=== PATIENT | male | born 1995 | race Caucasian/White ===

== ENCOUNTER 2018-11-27 15:02 | Emergency (ER) | payer OTHER, BC ==
[2018-11-27] MEDS ORDERED: Propofol 200 MG/20 ML SDV ONE ×2 (15:08→16:16)
[2018-11-27] MEDS ORDERED: fentaNYL 100 MCG/2 ML SDV ONE ×2 (15:08→16:15)
[2018-11-27] MEDS ORDERED: Rocuronium 50 MG/5 ML Vial ONE ×2 (15:08→16:16)
[2018-11-27] MEDS ORDERED: Succinylcholine 200 MG/10 ML MDV ONE ×2 (15:08→16:16)
[2018-11-27] MEDS ORDERED: Midazolam 1 MG/ML 2 ML SDV ONE ×3 (15:08→16:16)
[2018-11-27 15:20] LABS: ANION GAP 16.3 mmol/L (10-20); CHLORIDE,CL 104 mmol/L (98-109); SODIUM,NA 141 mmol/L (138-146)
[2018-11-27] MEDS ORDERED: Sodium Chloride 0.9% 1,000 ML IV ONE ×2 (15:20→15:30)
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
[2018-11-27] MEDS ORDERED: Chlorhexidine Gluconate 0.12% Oral Rinse 15 ML Cup ONE (16:20)
== END 2018-11-27 15:37 | disposition short-term general hospital (02) ==
LOC: VM.ED 15:02
DX: S01.511A Laceration without foreign body of lip, initial encounter (principal); S40.811A Abrasion of right upper arm, initial encounter; Z88.2 Allergy status to sulfonamides; W22.8XXA Striking against or struck by other objects, initial encounter
CPT/HCPCS: 36415; 51702; 80053; 85025; 96361; 96374; 96375; 99291; G0390; J0330; J2250; J2704; J3010; J7030